=== PATIENT | male | born 1960 | race Caucasian/White ===

== ENCOUNTER 2017-08-06 10:13 | Emergency (ER) | payer SELFPAY ==
[2017-08-06] MEDS: LIDOCAINE WITH 8.4% SOD BICARB 3 ML DISP.SYRIN. INJ (11:09)
== END 2017-08-06 12:28 | disposition home or self-care (01) ==
LOC: ER 10:13
DX: L02.212 Cutaneous abscess of back [any part, except buttock and flank] (principal); Z90.89 Acquired absence of other organs
CPT/HCPCS: 10060; 99283

== ENCOUNTER 2018-06-01 11:34 | Emergency (ER) | payer SELFPAY ==
[~2018-06-01] VITALS: Ht 180.3 cm; Wt 86.2 kg
[~2018-06-01 11:34] MED LIST: CEPH500C PO; SULF1TAB24 PO
[2018-06-01] MEDS ORDERED: fentaNYL PF VIAL 100 MCG/2 ML VIAL IV ONE (12:00)
[2018-06-01 12:07] LABS: BASO # 0.1 x10^3/uL (0.0-0.2); BASO % 1 % (0-3); EOS # 0.3 x10^3/uL (0.0-0.7); EOS % 5 % (0-3); HEMATOCRIT 39.5 % (39.0-53.0); HEMOGLOBIN 13.2 g/dL (13.0-17.5); LYMPH # 1.9 x10^3/uL (1.0-4.8); LYMPH % 24 % (24-48); MEAN CORPUSCULAR HEMOGLOBIN 31 pg (25-35); MEAN CORPUSCULAR HGB CONC 33 g/dL (31-37); MEAN CORPUSCULAR VOLUME 92 fL (79-100); MONO # 0.7 x10^3/uL (0.0-1.1); MONO % 9 % (0-9); NEUT # 4.7 x10^3uL (1.8-7.7); NEUT % 61 % (31-73); PLATELET COUNT 264 x10^3/uL (140-400); RED BLOOD COUNT 4.28 x10^6/uL (4.30-5.70); RED CELL DISTRIBUTION WIDTH 13.5 % (11.5-14.5); WHITE BLOOD COUNT 7.7 x10^3/uL (4.0-11.0)
[2018-06-01 12:14] LABS: CALCIUM 8.5 mg/dL (8.5-10.1); CREATININE 0.9 mg/dL (0.7-1.3); POTASSIUM 3.9 mmol/L (3.5-5.1)
[2018-06-01] MEDS ORDERED: IV NORMAL SALINE 1000ML BAG 1,000 ML IV ONE (12:15)
[2018-06-01 12:20] LABS: ALBUMIN 3.3 g/dL (3.4-5.0); ALBUMIN/GLOBULIN RATIO 0.8 (1.0-1.7); TOTAL BILIRUBIN 0.3 mg/dL (0.2-1.0); TOTAL PROTEIN 7.5 g/dL (6.4-8.2)
--- NOTE | 2018-06-01 12:21 | PHYS DOC ---
Past Medical History Past Medical History: Other Additional Past Medical Histor: SUBDURAL HEMATOMA X 2 Past Surgical History: Tonsillectomy, Other Additional Past Surgical Histo: LEFT ANKLE ORIF,SKULL SURG X 2 R/T SUBDURAL HEMATOMAS Alcohol Use: None Drug Use: None, Methamphetamine Adult General Chief Complaint Chief Complaint: TESTICULAR PAIN OR INJURY HPI HPI Patient is a 58 year old who presents with excruciating left testicular pain. Pt reports abrupt onset of symptoms 2-3 hours ago that is progressively worsening. Pt denies any inciting events/trauma stating that he was just walking and felt a slight pain in his left testicle, sat down, and then felt it again but worse. He reports that it was TTP then, but that it wasn't "too bad." He came to the ER because the pain got rapidly worse and he believes his left testicle has swollen 2-3 x in size since the start. He reports the pain starts in his left testicle and ascends into his pelvis/groin and wraps around his back. Pain rated a 10/10 and described as "terrible." He denies any history of testicular or other problems. He denies n/v, diarrhea, constipation, or trauma. Review of Systems Review of Systems Constitutional: Denies fever or chills Eyes: Denies change in visual acuity, redness, or eye pain HENT: Denies nasal congestion or sore throat Respiratory: Denies cough or shortness of breath Cardiovascular: No additional information not addressed in HPI GI: Admits LLQ abdominal pain. Denies nausea, vomiting, bloody stools or diarrhea : Admits testicular pain that radiates to the groin/pelvis and wraps around the back. Musculoskeletal: Denies back pain or joint pain Integument: Denies rash or skin lesions Neurologic: Denies headache, focal weakness or sensory changes All other systems were reviewed and found to be within normal limits, except as documented in this note. Current Medications Current Medications Current Medications Medications (Trade) Dose Ordered Sig/Jamar Start Time Stop Time Status Last Admin Dose Admin Azithromycin (Zithromax) 1,000 mg 1X ONCE 06/01/18 13:45 06/01/18 13:46 DC 06/01/18 13:58 1,000 MG Ceftriaxone Sodium (Rocephin) 1 gm 1X ONCE 06/01/18 13:45 06/01/18 13:46 DC 06/01/18 13:58 1 GM Fentanyl Citrate (Fentanyl 2ml Vial) 50 mcg 1X ONCE 06/01/18 12:00 06/01/18 12:01 DC 06/01/18 12:10 50 MCG Hydromorphone HCl (Dilaudid) 1 mg 1X ONCE 06/01/18 12:45 06/01/18 12:46 DC 06/01/18 12:47 1 MG Ketorolac Tromethamine (Toradol 15mg Vial) 15 mg 1X ONCE 06/01/18 14:00 06/01/18 14:01 DC 06/01/18 13:58 15 MG Labetalol HCl (Normodyne Iv Push) 10 mg 1X ONCE 06/01/18 12:30 06/01/18 12:31 DC 06/01/18 13:00 10 MG Sodium Chloride 1,000 ml @ 1,000 mls/hr 1X ONCE 06/01/18 12:15 06/01/18 13:14 DC 06/01/18 12:13 1,000 MLS/HR Allergies Allergies Allergies Coded Allergies Type Severity Reaction Last Updated Verified No Known Drug Allergies 09/18/13 No Physical Exam Physical Exam Constitutional: Well developed, well nourished, acute distress, writhing around in pain, thighs abducted widely by pt because he "can't even let his thighs touch" his left testicle. Wide spaced gait noted while patient was walking. HENT: Normocephalic, atraumatic, bilateral external ears normal, oropharynx moist, no oral exudates, nose normal. Eyes: PERRLA, EOMI, conjunctiva normal, no discharge. Neck: Normal range of motion, no tenderness, supple, no stridor. Cardiovascular: Heart rate regular rhythm, no murmur Lungs & Thorax: Bilateral breath sounds clear to auscultation Abdomen: SOFT NONTENDER :Extreme tenderness to palpation in the left testicle, light touch caused pt to jump up in pain. Cremasteric reflex was not elicited on the left. Left side of scrotum was swollen and larger compared to right, and the skin was erythematous. Slight inguinal tenderness to palpation. Extremities: No tenderness, no cyanosis, no clubbing, ROM intact, no edema. PSYCH: MILD ANXIETY NOTED Current Patient Data Vital Signs Vital Signs Date Time Temp Pulse Resp B/P (MAP) Pulse Ox O2 Delivery O2 Flow Rate FiO2 06/01/18 13:17 20 95 Room Air 06/01/18 13:00 85 175/110 06/01/18 11:40 97.7 97.7 Lab Values Laboratory Tests Test 06/01/18 11:53 06/01/18 12:35 White Blood Count 7.7 x10^3/uL (4.0-11.0) Red Blood Count 4.28 x10^6/uL (4.30-5.70) L Hemoglobin 13.2 g/dL (13.0-17.5) Hematocrit 39.5 % (39.0-53.0) Mean Corpuscular Volume 92 fL (79-100) Mean Corpuscular Hemoglobin 31 pg (25-35) Mean Corpuscular Hemoglobin Concent 33 g/dL (31-37) Red Cell Distribution Width 13.5 % (11.5-14.5) Platelet Count 264 x10^3/uL (140-400) Neutrophils (%) (Auto) 61 % (31-73) Lymphocytes (%) (Auto) 24 % (24-48) Monocytes (%) (Auto) 9 % (0-9) Eosinophils (%) (Auto) 5 % (0-3) H Basophils (%) (Auto) 1 % (0-3) Neutrophils # (Auto) 4.7 x10^3uL (1.8-7.7) Lymphocytes # (Auto) 1.9 x10^3/uL (1.0-4.8) Monocytes # (Auto) 0.7 x10^3/uL (0.0-1.1) Eosinophils # (Auto) 0.3 x10^3/uL (0.0-0.7) Basophils # (Auto) 0.1 x10^3/uL (0.0-0.2) Sodium Level 138 mmol/L (136-145) Potassium Level 3.9 mmol/L (3.5-5.1) Chloride Level 101 mmol/L (98-107) Carbon Dioxide Level 28 mmol/L (21-32) Anion Gap 9 (6-14) Blood Urea Nitrogen 15 mg/dL (8-26) Creatinine 0.9 mg/dL (0.7-1.3) Estimated GFR (Cockcroft-Gault) 87.0 BUN/Creatinine Ratio 17 (6-20) Glucose Level 109 mg/dL (70-99) H Calcium Level 8.5 mg/dL (8.5-10.1) Total Bilirubin 0.3 mg/dL (0.2-1.0) Aspartate Amino Transferase (AST) 48 U/L (15-37) H Alanine Aminotransferase (ALT) 74 U/L (16-63) H Alkaline Phosphatase 108 U/L (46-116) Total Protein 7.5 g/dL (6.4-8.2) Albumin 3.3 g/dL (3.4-5.0) L Albumin/Globulin Ratio 0.8 (1.0-1.7) L Urine Collection Type Unknown Urine Color Yellow Urine Clarity Clear Urine pH 7.5 Urine Specific [place] 1.015 Urine Protein Negative mg/dL (NEG-TRACE) Urine Glucose (UA) Negative mg/dL (NEG) Urine Ketones (Stick) Negative mg/dL (NEG) Urine Blood Moderate (NEG) Urine Nitrite Negative (NEG) Urine Bilirubin Negative (NEG) Urine Urobilinogen Dipstick 1.0 mg/dL (0.2 mg/dL) Urine Leukocyte Esterase Small (NEG) Urine RBC 20-40 /HPF (0-2) Urine WBC 5-10 /HPF (0-4) Urine Bacteria Few /HPF (0-FEW) Urine Opiates Screen Neg (NEG) Urine Methadone Screen Neg (NEG) Urine Barbiturates Neg (NEG) Urine Phencyclidine Screen Neg (NEG) Urine Amphetamine/Methamphetamine Pos (NEG) Urine Benzodiazepines Screen Neg (NEG) Urine Cocaine Screen Neg (NEG) Urine Cannabinoids Screen Neg (NEG) Urine Ethyl Alcohol Neg (NEG) Laboratory Tests 06/01/18 11:53 Laboratory Tests 06/01/18 11:53 EKG EKG [] Radiology/Procedures Radiology/Procedures [] Impressions: MPRESSION: 1. Enlarged left epididymis with increased flow with color imaging suggesting left epididymitis. 2. Tiny cyst in the left testicle. 3. There is not evidence to suggest torsion. Electronically signed by: Adalberto Cherry MD (06/01/2018 2:00 PM) [facility] DICTATED and SIGNED BY: ADALBERTO CHERRY MD DATE: 06/01/18 1400 Course & Med Decision Making Course & Med Decision Making 58 year old male w/ a history of methamphetamine use presents to the clinic with abrupt onset, rapidly progressing testicular pain. There were no inciting events/trauma. Skin was erythematous on left side of scrotum and visibly swollen. Pt extremely TTP in the left testicle, slight TTP in inguinal region on the left. Ddx Testicular Torsion Methamphetamine use Inguinal hernia Epididymidis Workup Scrotal US Pain meds U/S SHOWS EPIDIDYMITITS RX CIPRO/NORCO PT ADVISED BP F/U AND HEMATURIA F/U IN ONE MONTH GAVE STD TX IN THE ER PRESUMPTIVELY Dragon Disclaimer Dragon Disclaimer This electronic medical record was generated, in whole or in part, using a voice recognition dictation system. Departure Departure Impression: Primary Impression: Epididymitis Additional Impression: Elevated blood pressure reading Disposition: 01 HOME, SELF-CARE Condition: STABLE Referrals: NO PCP (PCP) Scripts Hydrocodone/Apap 5-325 (NORCO 5-325 TABLET) 1 Each Tablet 1-2 EACH PO PRN Q6HRS PRN for PAIN, #15 as needed for pain Prov: JONATHON HIRSCH MD 06/01/18 Ciprofloxacin Hcl (CIPRO) 500 Mg Tablet 1 TAB PO BID, #20 TAB Prov: JONATHON HIRSCH MD 06/01/18 Problem Qualifiers JONATHON HIRSCH MD Jun 01, 2018 12:21
[2018-06-01] MEDS ORDERED: LABETALOL 20 MG/4 ML DISP.SYRIN. IVP ONE (12:30)
[2018-06-01 12:44] LABS: BILIRUBIN,URINE NEGATIVE (NEG); CLARITY,URINE CLEAR; COLOR,URINE YELLOW; NITRITE,URINE NEGATIVE (NEG); PH,URINE 7.5; PROTEIN,URINE NEGATIVE (NEG-TRACE)
[2018-06-01] MEDS ORDERED: HYDROmorphone 2 MG/ML VIAL IV ONE (12:45)
[2018-06-01 12:51] LABS: BARBITURATES NEG (NEG); BENZODIAZEPINES NEG (NEG); CANNABINOIDS NEG (NEG); COCAINE NEG (NEG); METHADONE NEG (NEG); OPIATES NEG (NEG); PHENCYCLIDINE NEG (NEG)
[2018-06-01 12:53] LABS: AMPHETAMINE/METHAMPHETAMINE POS (NEG)
[2018-06-01 12:54] LABS: BACTERIA,URINE FEW /HPF (0-FEW); RBC,URINE 20-40 /HPF (0-2)
[2018-06-01] MEDS ORDERED: AZITHROMYCIN 250 MG TABLET. PO ONE (13:45)
[2018-06-01] MEDS ORDERED: cefTRIAXone IV Push 1 GM VIAL. IVP ONE (13:45)
[2018-06-01] MEDS ORDERED: HYDR-3164 PO (13:56)
[2018-06-01] MEDS ORDERED: CIPR500T94 PO (13:56)
[2018-06-01] MEDS ORDERED: KETOROLAC 15 MG/ML VIAL. IV ONE (14:00)
--- NOTE | 2018-06-01 14:03 | RAD ---
Ultrasound the scrotum. HISTORY: Acute left testicular pain Ultrasound was used to evaluate the scrotum. Right testicle is normal in size and appearance measuring 2.5 x 3.2 x 2.3 cm. There is no right testicular mass. There is no right hydrocele. Right epididymis is within normal limits. There is a tiny epididymal cyst on the right. There is one small cyst in the left testicle measuring 4 mm. There is no other testicular mass. There is a small hydrocele on the left. Left testicle measures 3.6 x 1.9 x 2.9 cm. Left epididymis is prominent compared to the right. There is increased flow in the left epididymis with color imaging. The pattern suggests an acute epididymitis. There is flow in both testicles with color imaging and Doppler. IMPRESSION: 1. Enlarged left epididymis with increased flow with color imaging suggesting left epididymitis. 2. Tiny cyst in the left testicle. 3. There is not evidence to suggest torsion. Electronically signed by: Armando Aguilera MD (06/01/2018 2:00 PM) [facility]
[2018-06-01 14:21] VITALS: BP 169/103
== END 2018-06-01 14:29 | disposition home or self-care (01) ==
LOC: ER 11:34
DX: N45.1 Epididymitis (principal); R03.0 Elevated blood-pressure reading, without diagnosis of hypertension; R10.32 Left lower quadrant pain; F15.20 Other stimulant dependence, uncomplicated; Z90.89 Acquired absence of other organs
CPT/HCPCS: 36415; 76870; 80053; 80307; 81001; 85025; 87086; 96374; 96375; 99284; J0696; J1170; J1885; J3010; J3490; J7030; Q0144

== ENCOUNTER 2020-09-29 11:10 | Emergency (ER) | payer SELFPAY ==
[~2020-09-29] VITALS: Ht 180.3 cm; Wt 85.8 kg
[~2020-09-29 11:10] MED LIST changes: +CIPR500T94 PO; +HYDR-3164 PO
[2020-09-29] MEDS ORDERED: VANCOMYCIN PER PHARMACY MC ONE (13:00)
--- NOTE | 2020-09-29 13:15 | RAD ---
EXAM: Right hand, 3 views. HISTORY: Wound. Pain. COMPARISON: None. FINDINGS: 3 views of the right hand are obtained. There is no fracture, dislocation or subluxation. T here is a small benign osseous excrescence along the ulnar aspect of the second metacarpal head. Ther e is an osteophyte along the second metacarpal head and there is second metacarpal phalangeal joint s pace narrowing due to osteoarthritis. IMPRESSION: 1. No acute osseous finding or radiodense foreign body. 2. Mild first metacarpal phalangeal joint osteoarthritis. Electronically signed by: Miya Kelly MD (09/29/2020 1:12 PM) [id number]
[2020-09-29] MEDS: VANCOMYCIN 2 GM in IV NORMAL SALINE 500ML BAG 500 ML IV ONE (13:23)
[2020-09-29 13:25] LABS: BASO # 0.1 x10^3/uL (0.0-0.2); BASO % 1 % (0-3); EOS # 0.3 x10^3/uL (0.0-0.7); EOS % 5 % (0-3); HEMOGLOBIN 15.5 g/dL (13.0-17.5); LYMPH # 1.9 x10^3/uL (1.0-4.8); LYMPH % 28 % (24-48); MEAN CORPUSCULAR HEMOGLOBIN 31 pg (25-35); MEAN CORPUSCULAR HGB CONC 34 g/dL (31-37); MEAN CORPUSCULAR VOLUME 93 fL (79-100); MONO # 0.8 x10^3/uL (0.0-1.1); MONO % 12 % (0-9); NEUT # 3.6 x10^3/uL (1.8-7.7); NEUT % 54 % (31-73); PLATELET COUNT 307 x10^3/uL (140-400); RED BLOOD COUNT 4.97 x10^6/uL (4.30-5.70); RED CELL DISTRIBUTION WIDTH 14.1 % (11.5-14.5); WHITE BLOOD COUNT 6.7 x10^3/uL (4.0-11.0)
[2020-09-29] MEDS: DIPH,PERTUSS(ACELL),TET VAC/PF 0.5 ML SYRINGE. VAX IM ONE (13:25)
[2020-09-29 13:33] LABS: GFR 76.5; POTASSIUM 4.4 mmol/L (3.5-5.1)
--- NOTE | 2020-09-29 13:38 | PHYS DOC ---
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 He states that there was a blister and he popped the blister but now he has had continued redness, tenderness and swelling. The redness is now spread to the dorsal hand. It is tender. He cannot bend it totally or make a fist. He rates his pain a 6 out of 10. Denies fever, nausea, vomiting, body aches, numbness or tingling, focal weakness. Past medical history of subdural hematoma x2, skull surgery x2, left ankle surgery, tonsillectomy and smoker. Review of Systems: Review of Systems: Constitutional: Denies fever or chills. [] Eyes: Denies change in visual acuity. [] HENT: Denies nasal congestion or sore throat. [] Respiratory: Denies cough or shortness of breath. [] Cardiovascular: Denies chest pain or + right hand edema. [] GI: Denies abdominal pain, nausea, vomiting, bloody stools or diarrhea. [] : Denies dysuria. [] Musculoskeletal: Denies back pain or joint pain. + Right hand pain [] Integument: Denies rash. + Right finger burn, + right hand redness [] Neurologic: Denies headache, focal weakness or sensory changes. [] Endocrine: Denies polyuria or polydipsia. [] Lymphatic: Denies swollen glands. [] Psychiatric: Denies depression or anxiety. [] Heart Score: C/O Chest Pain: No Risk Factors: Risk Factors: DM, Current or recent (<one month) smoker, HTN, HLP, family history of CAD, obesity. Risk Scores: Score 0 - 3: 2.5% MACE over next 6 weeks - Discharge Home Score 4 - 6: 20.3% MACE over next 6 weeks - Admit for Clinical Observation Score 7 - 10: 72.7% MACE over next 6 weeks - Early Invasive Strategies Current Medications: Current Medications Medications (Trade) Dose Ordered Sig/Jamar Start Time Stop Time Status Last Admin Dose Admin Diphtheria/ Tetanus/Acell Pertussis (ADACEL TDap SYRINGE) 0.5 ml ONCE ONCE 09/29/20 13:00 09/29/20 13:01 DC Vancomycin HCl (Vanco Per Pharmacy) 1 each 1X ONCE 09/29/20 13:00 09/29/20 13:01 UNV Vancomycin HCl 2 gm/Sodium Chloride 500 ml @ 250 mls/hr 1X ONCE 09/29/20 13:00 09/29/20 14:59 Allergies: Allergies: Allergies Coded Allergies Type Severity Reaction Last Updated Verified No Known Drug Allergies 09/29/20 No Physical Exam: PE: Constitutional: Well developed, well nourished, no acute distress, non-toxic antwan earance. [] HENT: Normocephalic, atraumatic, bilateral external ears normal, oropharynx moist, no oral exudates, nose normal. [] Eyes: PERRLA, EOMI, conjunctiva normal, no discharge. [] Neck: Normal range of motion, no tenderness, supple, no stridor. [] Cardiovascular:Heart rate regular rhythm, no murmur [] Lungs & Thorax: Bilateral breath sounds clear to auscultation [] Abdomen: Bowel sounds normal, soft, no tenderness, no masses, no pulsatile masses. [] Skin: Warm, dry, right dorsal hand and fourth finger erythema, no rash. [] Back: No tenderness, no CVA tenderness. [] Extremities: Right fourth finger tenderness, no cyanosis, no clubbing, right fourth finger ROM intact, right dorsal hand and fourth finger 2+ edema. [] Neurologic: Alert and oriented X 3, normal motor function, normal sensory fun ction, no focal deficits noted. [] Psychologic: Affect normal, judgement normal, mood normal. [] Current Patient Data: Vital Signs: Vital Signs Date Time Temp Pulse Resp B/P (MAP) Pulse Ox O2 Delivery O2 Flow Rate FiO2 09/29/20 12:30 98.6 77 16 150/101 (125) 99 Room Air 98.6 EKG: EKG: [] Radiology/Procedures: Radiology/Procedures: [] Impression: [facility] [address] [place] [address] IMAGING REPORT Signed PATIENT: LATRICIA SY ACCOUNT: [id number] : 1960 LOCATION: ER AGE: 60 SEX: M EXAM STATUS: REG ER ORD. PHYSICIAN: PENNIE NORWOOD APRN REASON: wound and swelling to index PROCEDURE: HAND RIGHT 3V EXAM: Right hand, 3 views. HISTORY: Wound. Pain. COMPARISON: None. FINDINGS: 3 views of the right hand are obtained. There is no fracture, dislocation or subluxation. There is a small benign osseous excrescence along the ulnar aspect of the second metacarpal head. There is an osteophyte along the second metacarpal head and there is second metacarpal phalangeal joint space narrowing due to osteoarthritis. IMPRESSION: 1. No acute osseous finding or radiodense foreign body. 2. Mild first metacarpal phalangeal joint osteoarthritis. Electronically signed by: Miya Kelly MD (09/29/2020 1:12 PM) [id number] DICTATED and SIGNED BY: MIYA KELLY MD DATE: 09/29/20 [id number] Course & Med Decision Making: Course & Med Decision Making Pertinent Labs and Imaging studies reviewed. (See chart for details) See HPI. Alert and oriented x4. Ambulatory with a steady gait. Speaks in full clear sentences. Afebrile. Radial pulse strong and present. Cap refill less than 2 seconds. Patient's right ring finger is reddened, swollen and he can slightly bend it but cannot bend it into a fist. The redness has extended to the dorsal hand. There is tenderness to the finger. X-ray shows osteoarthritis. There is no draining. Patient is given a tetanus shot in the ED. He is given vancomycin x1. 1524: Patient began turning red and itchy after most of Vanco has been ran in. He is given IV Benadryl, Pepcid and Solu-Medrol. No respiratory distress or trouble breathing. No angioedema. [] Hieu Disclaimer: Hieu Disclaimer: This electronic medical record was generated, in whole or in part, using a voice recognition dictation system. Departure Departure Impression: Primary Impression: Wound infection Additional Impression: Cellulitis Qualified Codes: L03.011 - Cellulitis of right finger Disposition: HOME / SELF CARE / HOMELESS Condition: STABLE Referrals: NO PCP (PCP) Patient Instructions: Cellulitis, Wound Infection Additional Instructions: FOLLOW UP WITH PRIMARY CARE PROVIDER. TAKE MEDICATION PRESCRIBED AND WITH FOOD. COME BACK IN 48 HOURS FOR A WOUND RECHECK. Scripts Methylprednisolone (MEDROL) 4 Mg Tab.ds.pk 1 PKG PO UD, #1 PKG Prov: PENNIE NORWOOD APRN 09/29/20 Diphenhydramine Hcl (BENADRYL ALLERGY) 25 Mg Tablet 1 TAB PO BID for 3 Days, #6 TAB 0 Refills Prov: PENNIE NORWOOD APRN 09/29/20 Clindamycin Hcl (CLINDAMYCIN HCL) 300 Mg Capsule 1 CAP PO TID, #30 CAP Prov: PENNIE NORWOOD APRN 09/29/20 PENNIE NORWOOD APRN Sep 29, 2020 13:38
[2020-09-29 13:39] LABS: ALBUMIN 3.3 g/dL (3.4-5.0); ALBUMIN/GLOBULIN RATIO 0.8 (1.0-1.7); TOTAL BILIRUBIN 0.4 mg/dL (0.2-1.0); TOTAL PROTEIN 7.6 g/dL (6.4-8.2)
[2020-09-29] MEDS ORDERED: CLIN300C9 PO (14:24)
[2020-09-29] MEDS ORDERED: methylPREDNISolone SOD SUCC PF 125 MG/2 ML VIAL. ONE (15:23)
[2020-09-29] MEDS ORDERED: FAMOTIDINE 20 MG/2 ML VIAL ONE (15:23)
[2020-09-29] MEDS ORDERED: diphenhydrAMINE 50 MG/ML VIAL ONE (15:23)
[2020-09-29] MEDS ORDERED: DIPH25TA64 PO (15:25)
[2020-09-29] MEDS ORDERED: METH4TAB2 PO (15:25)
[2020-09-29] MEDS: methylPREDNISolone SOD SUCC PF 125 MG/2 ML VIAL. IV ONE (15:26)
[2020-09-29] MEDS: diphenhydrAMINE 50 MG/ML VIAL IVP ONE (15:27)
[2020-09-29] MEDS: FAMOTIDINE 20 MG/2 ML VIAL IVP ONE (15:27)
[2020-09-29 16:11] VITALS: BP 140/93
== END 2020-09-29 16:14 | disposition home or self-care (01) ==
LOC: ER 11:10
DX: L03.011 Cellulitis of right finger (principal); F17.200 Nicotine dependence, unspecified, uncomplicated; F10.20 Alcohol dependence, uncomplicated; Y90.9 Presence of alcohol in blood, level not specified
CPT/HCPCS: 36415; 73130; 80053; 83605; 85025; 87040; 90471; 90715; 96365; 96375; 99285; J1200; J2930; J3370; J3490; J7040

== ENCOUNTER 2020-11-17 07:29 | Emergency (ER) | payer SELFPAY ==
[~2020-11-17] VITALS: Ht 180.3 cm; Wt 86.6 kg
[~2020-11-17 07:29] MED LIST changes: +CLIN300C9 PO; +DIPH25TA64 PO; +METH4TAB2 PO
--- NOTE | 2020-11-17 07:43 | PHYS DOC ---
Past Medical History Past Medical History: Other Additional Past Medical Histor: METH USE, SUBDURAL HEMATOMA Past Surgical History: No Surgical History Additional Past Surgical Histo: LEFT ANKLE ORIF,SKULL SURG X 2 R/T SUBDURAL HEMATOMAS Smoking Status: Current Every Day Smoker Alcohol Use: Heavy Drug Use: None, Methamphetamine General Adult EDM: Chief Complaint: DIZZY/LIGHT HEADED HPI: HPI: 60-year-old male with a history of subdural hematoma in the past presents to the emergency department complaining of dizziness, trouble ambulating for the last 24 hours. He reports yesterday he fell it was difficult to walk and he felt off balance. He denies any weakness, sensory changes or any facial changes. He reports today he has developed a gradual onset headache throughout the night which he states is behind his eyes, feels dull and is not exacerbated or made better by anything. The patient denies nausea, vomiting, fever, chills, chest pain, shortness of breath, abdominal pain, urinary symptoms, cough, recent trauma, or any other complaints. Review of Systems: Review of Systems: ROS is otherwise negative except what was mentioned in HPI Heart Score: C/O Chest Pain: No Allergies: Allergies: Allergies Coded Allergies Type Severity Reaction Last Updated Verified vancomycin Allergy Severe red rash to face and chest itching 09/29/20 Yes Physical Exam: PE: Constitutional: No acute distress, non-toxic appearance. HENT: Atraumatic, bilateral external ears normal, nose normal. Eyes: PERRLA, EOMI, conjunctiva normal, no discharge. Neck: Normal range of motion, supple, no stridor. Cardiovascular: Heart rate regular rhythm. 2+ radial pulses Lungs & Thorax: No respiratory distress, symmetrical expansion. Bilateral breath sounds clear to auscultation Abdomen: Soft, no tenderness Skin: Warm, dry. Extremities: No tenderness, no cyanosis, ROM intact, no edema. Neurologic: Alert and oriented X 3, patient reports he is dizzy upon ambulation, he is able to walk several steps around the room, feels off balance and dizzy. Reproducible upon sitting up in the bed. cranial nerves II through XII are intact. No pronator drift. [id number] is intact. Normal motor function, normal sensory function, no focal deficits noted. Non ataxic gait. GCS 15. Psychologic: Affect normal, judgment normal, mood normal. Current Patient Data: Labs: Laboratory Tests Test 11/17/20 07:32 White Blood Count 5.7 x10^3/uL (4.0-11.0) Red Blood Count 4.71 x10^6/uL (4.30-5.70) Hemoglobin 14.9 g/dL (13.0-17.5) Hematocrit 43.9 % (39.0-53.0) Mean Corpuscular Volume 93 fL (79-100) Mean Corpuscular Hemoglobin 32 pg (25-35) Mean Corpuscular Hemoglobin Concent 34 g/dL (31-37) Red Cell Distribution Width 13.9 % (11.5-14.5) Platelet Count 294 x10^3/uL (140-400) Neutrophils (%) (Auto) 45 % (31-73) Lymphocytes (%) (Auto) 38 % (24-48) Monocytes (%) (Auto) 9 % (0-9) Eosinophils (%) (Auto) 8 % (0-3) Basophils (%) (Auto) 1 % (0-3) Neutrophils # (Auto) 2.6 x10^3/uL (1.8-7.7) Lymphocytes # (Auto) 2.2 x10^3/uL (1.0-4.8) Monocytes # (Auto) 0.5 x10^3/uL (0.0-1.1) Eosinophils # (Auto) 0.4 x10^3/uL (0.0-0.7) Basophils # (Auto) 0.0 x10^3/uL (0.0-0.2) Sodium Level 143 mmol/L (136-145) Potassium Level 4.1 mmol/L (3.5-5.1) Chloride Level 107 mmol/L (98-107) Carbon Dioxide Level 29 mmol/L (21-32) Anion Gap 7 (6-14) Blood Urea Nitrogen 18 mg/dL (8-26) Creatinine 0.9 mg/dL (0.7-1.3) Estimated GFR (Cockcroft-Gault) 86.4 Glucose Level 95 mg/dL (70-99) Calcium Level 8.4 mg/dL (8.5-10.1) Vital Signs: Vital Signs Date Time Temp Pulse Resp B/P (MAP) Pulse Ox O2 Delivery O2 Flow Rate FiO2 11/17/20 11:06 56 141/95 (110) 97 11/17/20 09:38 45 18 145/93 (110) 99 11/17/20 08:30 64 145/93 (110) 96 11/17/20 07:29 97.7 65 18 146/84 99 Room Air 97.7 EKG: EK: Normal sinus rhythm rate of 62, no ST-T wave changes, no ectopic beats, normal axis, normal ND, QRS, and QTc intervals. Impression: Normal EKG. interpreted by me, Jamie Sandoval D.O. Radiology/Procedures: Radiology/Procedures: CT brain without contrast. CT arteriogram of the carotid arteries, CT arteriogram of the brain. HISTORY: Dizziness, trouble ambulating Noncontrast CT brain CT scan of the brain was done without contrast. There is no intracranial hemorrhage or subdural hematoma. There is no mass effect or shift of the midline. Ventricles are normal in size. Sinuses are clear. There are small craniotomy defects on the left from prior surgery. An acute CVA is not identified. IMPRESSION: 1. No intracranial hemorrhage or acute finding noted. End impression CT arteriogram carotid arteries CT arteriogram the carotid arteries was done using 75 mL Isovue-370 contrast. Three-dimensional images were reconstructed. There are mild emphysematous changes in the lung apices. Is a densely calcified thyroid nodule the isthmus. There is no adenopathy in the neck. There is degenerative disc disease at mul tiple levels in the cervical spine. Origins the great vessels are widely patent. A small right vertebral artery. The right vertebral stops at the PICA which is a normal variation. There is a prominent left vertebral artery supplying flow to the basilar artery. There is no significant plaque or stenosis at the carotid bifurcations on either side. Internal carotid arteries are patent. IMPRESSION: 1. Small right vertebral which stops at the PICA. 2. No carotid stenosis noted. 3. Prominent left vertebral supply flow to the basilar. End impression CT arteriogram of the brain CT arteriogram of the brain was done following CT arteriogram the carotid arteries. Three-dimensional images were reconstructed, sagittal and coronal MIP images were reconstructed. Basilar artery is normal. There is no posterior fossa aneurysm. Posterior cerebral arteries are supplied by the basilar artery and are normal in appearance. Intracranial internal carotid arteries are patent. There are normal anterior cerebral arteries without stenosis or occlusion. Middle cerebral arteries are also unremarkable, no major vessel occlusion is noted intracranially. Intracranial veins are patent. There is no pathologic enhancement. There is no mass effect or shift of the midline. There are small craniotomies on the left previous surgery. IMPRESSION: 1. No major vessel occlusion noted intracranially. 2. No pathologic enhancement. 3. No intracranial aneurysm. Course & Med Decision Making: Course & Med Decision Making Patient is able to ambulate unassisted, labs and imaging are as above. Patient requests discharge. I counseled him on return precautions and he appears stable for discharge with follow-up with primary care physician My Orders - JAMIE SANDOVAL DO Procedure Category Date Status Time Metoclopramide Vial PHA 11/17/20 Complete (Reglan Vial) 07:45 Meclizine Hcl PHA 11/17/20 Complete (Antivert) 07:45 Cbc W Autodiff LAB 11/17/20 Complete 07:37 Basic Metabolic Panel LAB 11/17/20 Complete 07:[address] 11/17/20 Resulted And Neck 07:37 Ua W Microscopic LAB 11/17/20 Logged 07:37 12 Lead Ekg EKG 11/17/20 Logged 07:37 Iv Normal Saline PHA 11/17/20 Complete 1000ml Bag (Iv Sodium 07:45 Ct Head Wo Contrast CT 11/17/20 Resulted 07:53 Iohexol 300 Mg/Ml PHA 11/17/20 Complete (Omnipaque 300 Mg/Ml) 08:00 Contrast Given -- PHA 11/17/20 In Process Info Only (Contrast Gi 08:00 Departure Departure Impression: Primary Impression: Headache Disposition: 01 HOME / SELF CARE / HOMELESS Condition: STABLE Referrals: NO PCP (PCP) Patient Instructions: General Headache Without Cause, [id number] Additional Instructions: You were seen in the Emergency Department for headache. Please drink plenty of fluids -- at least 6-8 glasses of water per day. Dehydration can often precipitate headaches. Avoid alcohol and sugary or caffeinated beverages. Return to the Emergency Department, day or night, if you develop recurrent or worsening headache, vision changes, difficulty eating or drinking due to nausea or vomiting, weakness or numbness in the limbs, difficulty walking or fever. JAMIE SANDOVAL DO Nov 17, 2020 07:43
[2020-11-17] MEDS ORDERED: IV NORMAL SALINE 1000ML BAG 1,000 ML IV ONE (07:45)
[2020-11-17] MEDS ORDERED: MECLIZINE HCL 12.5 MG TABLET. PO ONE (07:45)
[2020-11-17] MEDS ORDERED: METOCLOPRAMIDE HCL 10 MG/2 ML VIAL. IVP ONE (07:45)
[2020-11-17] MEDS ORDERED: IOHEXOL 300 MG/ML 100ML VIAL. IV ONE (08:00)
[2020-11-17] MEDS ORDERED: CONTRAST GIVEN. MC PRN (08:00)
[2020-11-17 08:07] LABS: BASO % 1 % (0-3); EOS # 0.4 x10^3/uL (0.0-0.7); EOS % 8 % (0-3); HEMATOCRIT 43.9 % (39.0-53.0); HEMOGLOBIN 14.9 g/dL (13.0-17.5); LYMPH # 2.2 x10^3/uL (1.0-4.8); LYMPH % 38 % (24-48); MEAN CORPUSCULAR HEMOGLOBIN 32 pg (25-35); MEAN CORPUSCULAR HGB CONC 34 g/dL (31-37); MEAN CORPUSCULAR VOLUME 93 fL (79-100); MONO # 0.5 x10^3/uL (0.0-1.1); MONO % 9 % (0-9); NEUT # 2.6 x10^3/uL (1.8-7.7); NEUT % 45 % (31-73); PLATELET COUNT 294 x10^3/uL (140-400); RED BLOOD COUNT 4.71 x10^6/uL (4.30-5.70); RED CELL DISTRIBUTION WIDTH 13.9 % (11.5-14.5); WHITE BLOOD COUNT 5.7 x10^3/uL (4.0-11.0)
[2020-11-17 08:20] LABS: CALCIUM 8.4 mg/dL (8.5-10.1); CREATININE 0.9 mg/dL (0.7-1.3); GFR 86.4; POTASSIUM 4.1 mmol/L (3.5-5.1)
--- NOTE | 2020-11-17 09:09 | RAD ---
CT brain without contrast. CT arteriogram of the carotid arteries, CT arteriogram of the brain. HISTORY: Dizziness, trouble ambulating Noncontrast CT brain CT scan of the brain was done without contrast. There is no intracranial hemorrhage or subdural hemat jalil. There is no mass effect or shift of the midline. Ventricles are normal in size. Sinuses are reji r. There are small craniotomy defects on the left from prior surgery. An acute CVA is not identified. IMPRESSION: 1. No intracranial hemorrhage or acute finding noted. End impression CT arteriogram carotid arteries CT arteriogram the carotid arteries was done using 75 mL Isovue-370 contrast. Three-dimensional image s were reconstructed. There are mild emphysematous changes in the lung apices. Is a densely calcified thyroid nodule the isthmus. There is no adenopathy in the neck. There is degenerative disc disease a t multiple levels in the cervical spine. Origins the great vessels are widely patent. A small right v ertebral artery. The right vertebral stops at the PICA which is a normal variation. There is a promin ent left vertebral artery supplying flow to the basilar artery. There is no significant plaque or alexander nosis at the carotid bifurcations on either side. Internal carotid arteries are patent. IMPRESSION: 1. Small right vertebral which stops at the PICA. 2. No carotid stenosis noted. 3. Prominent left vertebral supply flow to the basilar. End impression CT arteriogram of the brain CT arteriogram of the brain was done following CT arteriogram the carotid arteries. Three-dimensional images were reconstructed, sagittal and coronal MIP images were reconstructed. Basilar artery is nor mal. There is no posterior fossa aneurysm. Posterior cerebral arteries are supplied by the basilar ar dede and are normal in appearance. Intracranial internal carotid arteries are patent. There are yohana l anterior cerebral arteries without stenosis or occlusion. Middle cerebral arteries are also unremar kable, no major vessel occlusion is noted intracranially. Intracranial veins are patent. There is no pathologic enhancement. There is no mass effect or shift of the midline. There are small craniotomies on the left previous surgery. IMPRESSION: 1. No major vessel occlusion noted intracranially. 2. No pathologic enhancement. 3. No intracranial aneurysm. FOR INTERNAL CODING PURPOSES Critical result: Findings discussed with ER physician Dr. Sandoval at 11/17/2020 8:57 AM. RESULT CODE: (C) Compliance Statement: One or more of the following individualized dose reduction techniques were utilized for this examinat ion: 1. Automated exposure control 2. Adjustment of the mA and/or kV according to patient size 3. Use of iterative reconstruction technique Electronically signed by: Armando Aguilera MD (11/17/2020 9:07 AM) [facility]
[2020-11-17 11:40] VITALS: BP 142/89
--- NOTE | 2020-11-17 14:12 | EKG ---
[facility] [address] [place] [address] Test Date: 2020-11-17 Test Time: 07:39:49 Pat Name: LATRICIA SY Department: Room: Gender: M Supervisor [employer]: : 1960 Requested By: JONATHON DEAN Order Number: [id number] Reading MD: Measurements Intervals Salley Rate: 62 P: 55 CT: 198 QRS: 25 QRSD: 84 T: 34 QT: 390 QTc: 398 Interpretive Statements SINUS RHYTHM NORMAL ECG RI6.02 No previous ECG available for comparison
== END 2020-11-17 11:40 | disposition home or self-care (01) ==
LOC: ER 07:29
DX: R51.9 Headache, unspecified (principal); R42 Dizziness and giddiness; M54.2 Cervicalgia; F10.20 Alcohol dependence, uncomplicated; Y90.9 Presence of alcohol in blood, level not specified; F17.200 Nicotine dependence, unspecified, uncomplicated; Z88.1 Allergy status to other antibiotic agents
CPT/HCPCS: 36415; 70450; 70496; 70498; 80048; 85025; 93005; 96361; 96374; 99285; J2765; J7030; J8597; Q9967

== ENCOUNTER 2021-07-24 04:15 | Emergency (ER) | payer SELFPAY ==
[~2021-07-24] VITALS: Ht 180.3 cm; Wt 90.8 kg
[~2021-07-24 04:15] MED LIST changes: +CLIN-94 PO; -CLIN300C9 PO
[2021-07-24] MEDS ORDERED: FLUORESCEIN OPHTH TEST STRIP. OD ONE (05:00)
[2021-07-24] MEDS ORDERED: ERYTHROMYCIN 0.5% OPHTH OINTMENT 1GM TUBE. OD ONE (05:00)
[2021-07-24] MEDS ORDERED: TETRACAINE 0.5% OPHTH SOLUTION 4ML BOTTLE. OD ONE (05:00)
[2021-07-24] MEDS ORDERED: ERYT1OIN6 OP (05:17)
--- NOTE | 2021-07-24 05:17 | PHYS DOC ---
Past Medical History Past Medical History: Other Additional Past Medical Histor: METH USE, SUBDURAL HEMATOMA Additional Past Surgical Histo: LEFT ANKLE ORIF,SKULL SURG X 2 R/T SUBDURAL HEMATOMAS Smoking Status: Current Every Day Smoker Alcohol Use: Occasionally Drug Use: Methamphetamine General Adult EDM: Chief Complaint: FOREIGN BODY/EYES HPI: HPI: 61-year-old male presents with report of right eye foreign body sensation after grinding metal 2 days ago. Patient reports noting he got a piece of metal stuck in his eye. Patient reports his eye started to feel better after he rinsed it out in the shower with some water. Patient reports tonight his pain became sign ificantly worse. Reports redness to the eye. Denies any discharge. Patient reports last tetanus booster less than 5 years ago. Denies use of contact lenses. Patient reports he did use some protective eyewear however the metal "got underneath it ". Review of Systems: Review of Systems: Constitutional: Denies fever or chills Eyes: Reports right eye redness and pain Integument: Denies rash or skin lesions Neurologic: Denies headache, focal weakness or sensory changes Complete systems were reviewed and found to be within normal limits, except as documented in this note. Heart Score: C/O Chest Pain: N/A Current Medications: Current Medications Medications (Trade) Dose Ordered Sig/Jamar Start Time Stop Time Status Last Admin Dose Admin Erythromycin (Romycin) 0.25 inch 1X ONCE 07/24/21 05:00 07/24/21 05:01 DC 07/24/21 04:45 0.25 INCH Fluorescein Sodium (Ful-Gini) 1 strip 1X ONCE 07/24/21 05:00 07/24/21 05:01 DC 07/24/21 04:45 1 STRIP Tetracaine HCl (Tetracaine) 2 drop 1X ONCE 07/24/21 05:00 07/24/21 05:01 DC 07/24/21 04:45 2 DROP Allergies: Allergies: Allergies Coded Allergies Type Severity Reaction Last Updated Verified vancomycin Allergy Severe red rash to face and chest itching 09/29/20 Yes Physical Exam: PE: Constitutional: Well developed, well nourished, no acute distress, non-toxic appearance HENT: Normocephalic, atraumatic Eyes: PERRL, EOMI, conjunctiva injected on right, metallic foreign body noted to cornea at 7 o'clock position, frequent tearing of eye, upper eyelid everted without other foreign body noted Neck: Normal range of motion, supple Lungs & Thorax: No respiratory distress, equal chest rise and fall Skin: Warm, dry, no erythema, no rash Neurologic: Alert and oriented X 3, no focal deficits noted Psychologic: Affect normal, judgment normal Current Patient Data: Vital Signs: Vital Signs Date Time Temp Pulse Resp B/P (MAP) Pulse Ox O2 Delivery O2 Flow Rate FiO2 07/24/21 04:27 97.8 84 20 185/121 (142) 98 97.8 EKG: EKG: [] Radiology/Procedures: Radiology/Procedures: [] Course & Med Decision Making: Course & Med Decision Making Patient presents with HPI and physical exam consistent for metallic foreign body to right cornea. Cornea injected. Symptomatic treatment provided with tetracaine ophthalmic ointment and ibuprofen. Ophthalmic burring utilized with successful removal of foreign body. Corneal abrasion therefore appreciated without Melissa sign after fluorescein use. Empiric ophthalmic antibiotic ointment applied. Patient reports his tetanus booster is up-to-date. Patient stable for discharge with outpatient follow-up with PCP/ophthalmology. Ophthalmology referral provided. Discussed findings and plan with patient, who acknowledges understanding and agreement. Hieu Disclaimer: Hootsuitesonny Disclaimer: This electronic medical record was generated, in whole or in part, using a voice recognition dictation system. Additional Procedures Progress Ophthalmic burring for metallic fragments to right cornea Verbal consent obtained. Time out performed. Hand hygiene utilized. Anesthesia obtained with administration of ophthalmic tetracaine solution. Metallic foreign body noted at 7 o'clock position. Ophthalmic bur utilized with successful removal of foreign body. Fluorescein dye then applied without signs of Melissa sign but notation of corneal abrasion. Upper eyelid everted and lower eyelid evaluated without signs of further foreign body. Empiric ophthalmic antibiotic ointment applied. Patient tolerated procedure well and without difficulty. Departure Departure Impression: Primary Impression: Corneal foreign body Qualified Codes: T15.01XA - Foreign body in cornea, right eye, initial enc ounter Disposition: HOME / SELF CARE / HOMELESS Condition: STABLE Referrals: NO PCP (PCP) YARELY MYLES MD Patient Instructions: Eye - Corneal Foreign Body Additional Instructions: Use antibiotic ointment supplied to you today 4 times daily for the next 5 days. An additional prescription has been provided if you require more. Use [id number] ibuprofen and or Tylenol for pain or discomfort. Scripts Erythromycin Base (Erythromycin) 1 Gm Oint...g. 0.25 INCH OP QID for 5 Days, #1 UNIT Apply 0.25 inch ribbon to lower eyelid 4 times daily for 5 days. Prov: JAYNE RAMIREZ DO 07/24/21 JAYNE RAMIREZ DO July 24, 2021 05:17
[2021-07-24] MEDS ORDERED: IBUPROFEN 200 MG TABLET. PO ONE (05:30)
[2021-07-24 05:57] VITALS: BP 199/92
== END 2021-07-24 05:58 | disposition home or self-care (01) ==
LOC: ER 04:15
DX: T15.01XA Foreign body in cornea, right eye, initial encounter (principal); F17.200 Nicotine dependence, unspecified, uncomplicated; Z88.1 Allergy status to other antibiotic agents; X58.XXXA Exposure to other specified factors, initial encounter; Y93.89 Activity, other specified; Y92.89 Other specified places as the place of occurrence of the external cause; Y99.8 Other external cause status
CPT/HCPCS: 65220; 99284

== ENCOUNTER 2021-08-01 06:52 | Emergency (ER) | payer SELFPAY ==
[~2021-08-01] VITALS: Ht 180.3 cm; Wt 88.2 kg
[~2021-08-01 06:52] MED LIST changes: +ERYT1OIN6 OP
[2021-08-01 07:03] VITALS: BP 154/108
[2021-08-01] MEDS ORDERED: FLUORESCEIN OPHTH TEST STRIP. ONE (07:22)
[2021-08-01] MEDS ORDERED: TETRACAINE 0.5% OPHTH SOLUTION 4ML BOTTLE. ONE (07:22)
[2021-08-01] MEDS ORDERED: FLUORESCEIN OPHTH TEST STRIP. OD ONE (07:30)
[2021-08-01] MEDS ORDERED: TETRACAINE 0.5% OPHTH SOLUTION 4ML BOTTLE. OD ONE (07:30)
[2021-08-01] MEDS ORDERED: PRED5DRO2 OD ×2 (08:04→09:21)
[2021-08-01] MEDS ORDERED: MOXI3DRO22 OD ×2 (08:04→09:21)
--- NOTE | 2021-08-01 09:14 | RAD ---
XR ORBITS COMPLETE 4+ VIEWS History: r/o intraocular metallic foreign body. Comparison: None. Technique: 5 views the orbits. Findings: Osseous mineralization is normal. The paranasal sinuses are well aerated. No fracture or dislocation is identified. No radiopaque foreign body. Impression: 1. No radiopaque orbital foreign body. Electronically signed by: Claude Nichols MD (08/01/2021 9:12 AM) [id number]
--- NOTE | 2021-08-01 09:26 | PHYS DOC ---
Past Medical History Past Medical History: Other Additional Past Medical Histor: METH USE, SUBDURAL HEMATOMA Past Surgical History: No Surgical History, Other Additional Past Surgical Histo: LEFT ANKLE ORIF,SKULL SURG X 2 R/T SUBDURAL HEMATOMAS Smoking Status: Current Every Day Smoker Additional Information: 1 ppd Alcohol Use: Heavy Additional Information: drinks beer daily Drug Use: Methamphetamine General Adult EDM: Chief Complaint: EYE PROBLEMS HPI: HPI: Patient is a 61 year old male who Stephanie presents to the emergency department after being treated with erythromycin ointment in the right eye after a foreign body of the cornea was extracted by a different emergency department physician. Patient states he was feeling much better a couple days after the initial injury, however since yesterday his eye has become more red, sensitive to light, he has had blurry vision, he also has some pain in his right eye. Patient has had some tearing as well, no purulent discharge. Otherwise patient is doing fine, no systemic symptoms. Review of Systems: Review of Systems: Constitutional: Denies fever or chills. [] Eyes: Decrease in visual acuity in right eye. [] HENT: Denies nasal congestion or sore throat. [] Respiratory: Denies cough or shortness of breath. [] Cardiovascular: Denies chest pain or edema. [] GI: Denies abdominal pain, nausea, vomiting, bloody stools or diarrhea. [] : Denies dysuria. [] Musculoskeletal: Denies back pain or joint pain. [] Integument: Denies rash. [] Neurologic: Denies headache, focal weakness or sensory changes. [] Endocrine: Denies polyuria or polydipsia. [] Lymphatic: Denies swollen glands. [] Psychiatric: Denies depression or anxiety. [] Heart Score: C/O Chest Pain: No Risk Factors: Risk Factors: DM, Current or recent (<one month) smoker, HTN, HLP, family history of CAD, obesity. Risk Scores: Score 0 - 3: 2.5% MACE over next 6 weeks - Discharge Home Score 4 - 6: 20.3% MACE over next 6 weeks - Admit for Clinical Observation Score 7 - 10: 72.7% MACE over next 6 weeks - Early Invasive Strategies Current Medications: Current Medications Medications (Trade) Dose Ordered Sig/Jamar Start Time Stop Time Status Last Admin Dose Admin Fluorescein Sodium (Ful-Gini) 1 strip 1X ONCE 08/01/21 07:30 08/01/21 07:31 DC 08/01/21 07:27 1 STRIP Tetracaine HCl (Tetracaine) 1 drop 1X ONCE 08/01/21 07:30 08/01/21 07:31 DC 08/01/21 07:27 1 DROP Allergies: Allergies: Allergies Coded Allergies Type Severity Reaction Last Updated Verified vancomycin Allergy Severe red rash to face and chest itching 08/01/21 Yes Physical Exam: PE: Constitutional: Well developed, well nourished, no acute distress, non-toxic appearance. [] HENT: Normocephalic, atraumatic, bilateral external ears normal, oropharynx moist, no oral exudates, nose normal. [] Eyes: PERRLA, EOMI, conjunctiva injected, + clear discharge, 20/200 visual acuity in right eye, 20/70 in the left eye, fluorescein exam shows indentation in the right cornea, less than 1 mm. No new findings.. [] Neck: Normal range of motion, no tenderness, supple, no stridor. [] Cardiovascular:Heart rate regular rhythm, no murmur [] Lungs & Thorax: Bilateral breath sounds clear to auscultation [] Abdomen: Bowel sounds normal, soft, no tenderness, no masses, no pulsatile masses. [] Skin: Warm, dry, no erythema, no rash. [] Back: No tenderness, no CVA tenderness. [] Extremities: No tenderness, no cyanosis, no clubbing, ROM intact, no edema. [] Neurologic: Alert and oriented X 3, normal motor function, normal sensory function, no focal deficits noted. [] Psychologic: Affect normal, judgement normal, mood normal. [] Current Patient Data: Vital Signs: Vital Signs Date Time Temp Pulse Resp B/P (MAP) Pulse Ox O2 Delivery O2 Flow Rate FiO2 08/01/21 07:03 97.8 77 20 154/108 (123) 97 Room Air 97.8 EKG: EKG: [] Radiology/Procedures: Radiology/Procedures: No foreign body seen on x-ray [] Impression: Right keratitis and iritis Course & Med Decision Making: Course & Med Decision Making Pertinent Labs and Imaging studies reviewed. (See chart for details) 61-year-old male presenting several days after metallic foreign body of the right thigh, patient did not complete antibiotics. Patient did not follow-up with ophthalmology. Patient states that he has pain. I spoke with Dr. Howard, ophthalmology, he recommended moxifloxacin and Pred forte 4 times daily 5 minutes apart. Patient will follow-up with ophthalmology in 24 to 48 hours. Patient understood and agreed with the plan of action, patient hemodynamically stable time of discharge. Patient agreed to follow-up. All questions answered, patient stable at the time of discharge. Dragon Disclaimer: Dragon Disclaimer: This electronic medical record was generated, in whole or in part, using a voice recognition dictation system. Departure Departure Impression: Primary Impression: Keratitis, right Additional Impression: Iritis of right eye Condition: GOOD Patient Instructions: Iritis, [id number] Additional Instructions: Follow-up with ophthalmology and 24 hours if your eye is not improving You may return to the emergency department if you are unable to see ophthalmology, however ophthalmology has said that they will see you anytime we would like to walk-in. Scripts Prednisolone Acetate (PRED MILD) 5 Ml Drops.susp 1 DROP OD QID, #5 ML 0 Refills Prov: KIKO WOLFE MD 08/01/21 Moxifloxacin Hcl (VIGAMOX) 3 Ml Drops 1 DROP OD QID, #1 BOTTLE Prov: KIKO WOLFE MD 08/01/21 KIKO WOLFE MD August 01, 2021 09:26
== END 2021-08-01 09:56 | disposition home or self-care (01) ==
LOC: ER 06:52
DX: H16.9 Unspecified keratitis (principal); H20.9 Unspecified iridocyclitis; F17.200 Nicotine dependence, unspecified, uncomplicated; Z88.1 Allergy status to other antibiotic agents
CPT/HCPCS: 70200; 99283